=== PATIENT | female | born 1965 | race American Indian/Alaskan Native ===

== ENCOUNTER 2017-09-23 13:41 | Observation (INO) | payer OTHER ==
[2017-09-23 13:47] VITALS: BMI 32.9
--- NOTE | 2017-09-23 16:05 | PDOC ---
Attending Attestation - HPI HPI: 09/23/17 18:07 The patient is a 50 year old female with past medical history of Stroke (CVA w/ residual of the left sided weakness, April 22 2017, blood pressure was 240) , PE (June 2017 ,on Coumadin takes it night time) and HTN presents to the emergency department with nausea and increased weakness to the left side of the body since 1:00 pm today. The patient reports she was feeling fine in the morning until at 1:00 pm at the opthamologist when she started to feel nauseous.The patient can ambulate on her own but today she was having a hard time walking. The patient states she had an headache which is now resolved. The patient reports for the past few days shes been biting her left cheek whenever she eats. The patient reports a baseline symptoms of, left sided weakness but today she feel weakness more than usual, left eye vision problem, cough. The patient reports she doesnt have a neurologist, but reports she has an appointment next week but cant remember of the doctor's name. The patient reports taking all her medication today. Denies chest pain, sob. Denies any change in vision other than the normal symptoms since the stroke. Denies any dysuria, hematuria, frequency or urgency to urinate. Denies any congestion or vertigo sensations. Allergies: NKDA Social history: None reported Surgical history: None reported PCP: None reported - Physicial Exam PE: 09/23/17 18:07 GENERAL: Awake, alert, and fully oriented, in no acute distress HEAD: No signs of trauma EYES: PERRLA, EOMI, sclera anicteric, conjunctiva clear ENT: Auricles normal inspection, hearing grossly normal, nares patent, oropharynx clear without exudates. Moist mucosa NECK: Normal ROM, supple, no lymphadenopathy, JVD, or masses LUNGS: Breath sounds equal, clear to auscultation bilaterally. No wheezes, and no crackles HEART: Regular rate and rhythm, normal S1 and S2, no murmurs, rubs or gallops ABDOMEN: Soft, nontender, normoactive bowel sounds. No guarding, no rebound. No masses EXTREMITIES: Normal range of motion, no edema. No clubbing or cyanosis. No cords, erythema, or tenderness NEUROLOGICAL: (+) Cranial nerve 3 left palsi, Little left facial droop, Sensation intact, Left upper extremity 2/5 and Lower extremity 5/5 Normal speech SKIN: Warm, Dry, normal turgor, no rashes or lesions noted. - Medical Decision Making 09/23/17 18:07 Documentation prepared by Daniela Mcmahan, acting as medical policy specialist for Norma Vences DO. <Daniela Mcmahan - Last Filed: 09/23/17 18:35> - Resident Resident Name: Van Rodson - ED Attending Attestation I have performed the following: I have examined & evaluated the patient, The case was reviewed & discussed with the resident, I agree w/resident's findings & plan, Exceptions are as noted - Medical Decision Making 09/23/17 16:05 I, Dr. Norma Vences DO, attest that this document has been prepared under my direction and personally reviewed by me in its entirety. I further attest, that it accurately reflects all work, treatment, procedures and medical decision -making performed by me. 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 Beard who accepts pt to service <Norma Vences - Last Filed: 09/23/17 19:50>
--- NOTE | 2017-09-23 16:31 | PDOC ---
History of Present Illness - General Chief Complaint: Nausea Stated Complaint: NAUSEA, DIZZINESS Time Seen by Provider: 09/23/17 14:25 - History of Present Illness Initial Comments: 09/23/17 16:07 50 yo F with h/o HTN, hemorrhagic CVA ( residual L sided weakness-04/22/2017 ), PE (06/21) on Coumadin who p/w L sided weakness, nausea w/out vomiting, and frontal BARAJAS. Patient reports acute onset L sided facial tightness, fatigue, and nausea without vomiting while at ophthalmology apt. Endorses diffuse dull, unremitting, BARAJAS following symptoms. Daughter at bedside does not report increased focal motor defects. Daughter reports improvement in symptoms. Denies F/C, CP, SOB, abdominal pain, diarrhea, constipation, urinary complaints , LOC, sensory changes. PMHx: as noted above. Last INR 3 weeks ago unknown. Patient does not f/w neurology. Scheduled ROS: as noted above SHx: Denies tobacco, Etoh, IVDA. Allergies: NKDA Past History - Past Medical History Allergies/Adverse Reactions: Allergies Allergy/AdvReac Type Severity Reaction Status Date / Time No Known Allergies Allergy Verified 09/23/17 13:47 Home Medications: Ambulatory Orders Amlodipine Besylate [Norvasc -] 5 mg PO DAILY 09/23/17 Escitalopram Oxalate [Lexapro -] 10 mg PO DAILY 09/23/17 Famotidine [Pepcid -] 40 mg PO DAILY 09/23/17 Multivitamins [Multivit ([facility] Formulary)] 1 tab PO DAILY 09/23/17 Valsartan [Diovan] 40 mg PO DAILY 09/23/17 Warfarin Na [Coumadin -] 2 mg PO ASDIR 09/23/17 COPD: No Other medical history: stroke april 2017 (left side weakness) - Immunization History Immunization Up to Date: Yes - Suicide/Smoking/Psychosocial Hx Smoking History: Never smoked Review of Systems - Review of Systems Comments:: 09/23/17 17:05 GENERAL/CONSTITUTIONAL: No fever or chills. No weakness. HEAD, EYES, EARS, NOSE AND THROAT: No change in vision. No ear pain or discharge. No sore throat. CARDIOVASCULAR: No chest pain or shortness of breath RESPIRATORY: No cough, wheezing, or hemoptysis. GASTROINTESTINAL: + nausea, without vomiting, diarrhea or constipation. GENITOURINARY: No dysuria, frequency, or change in urination. MUSCULOSKELETAL: No joint or muscle swelling or pain. No neck or back pain. SKIN: No rash NEUROLOGIC: + headache, and no vertigo, loss of consciousness, or change in strength/sensation. ENDOCRINE: No increased thirst. No abnormal weight change HEMATOLOGIC/LYMPHATIC: No anemia, easy bleeding, or history of blood clots. ALLERGIC/IMMUNOLOGIC: No hives or skin allergy. *Physical Exam - Vital Signs Last Vital Signs Temp Pulse Resp BP Pulse Ox 98.7 F 80 20 113/67 99 09/23/17 13:44 09/23/17 13:44 09/23/17 13:44 09/23/17 13:44 09/23/17 13:44 - Physical Exam Comments: 09/23/17 17:07 GENERAL: Awake, alert, and fully oriented, in no acute distress HEAD: + Left sied lower/partial facial droop.No signs of trauma, normocephalic, atraumatic EYES: PERRLA, EOMI, sclera anicteric, conjunctiva clear ENT: Auricles normal inspection, hearing grossly normal, nares patent, oropharynx clear without exudates. Moist mucosa NECK: Normal ROM, supple, no lymphadenopathy, JVD, or masses LUNGS: No distress, speaks full sentences, clear to auscultation bilaterally HEART: Regular rate and rhythm, normal S1 and S2, no murmurs, rubs or gallops, peripheral pulses normal and equal bilaterally. ABDOMEN: Soft, nontender, normoactive bowel sounds. No guarding, no rebound. No masses EXTREMITIES : Normal inspection, Normal range of motion, no edema. No clubbing or cyanosis. NEUROLOGICAL: Cranial nerves II through XII grossly intact. Limited L eye vertical gaze CN III. Normal speech, gait not assessed. Limited LUE ROM. 2/5 elbow flexion and extension. BL UE and LE otherwise 5/5. LUE dysmetria on FTN. ROGELIO and HTS intact. Sensation to pinprick and proprioception intact SKIN: Warm, Dry, normal turgor, no rashes or lesions noted ED Treatment Course - LABORATORY CBC & Chemistry Diagram: 09/23/17 18:30 09/23/17 23:21 Medical Decision Making - Medical Decision Making 09/23/17 17:18 50 yo F with h/o HTN, hemorrhagic CVA ( residual L sided weakness-04/22/2017 ), PE (06/21) on Coumadin who p/w L sided weakness, nausea w/out vomiting, and frontal BARAJAS. VSS, AF, A&Ox3. Left sided partial/lower facial droop, and LUE 2/5 baseline, with no acute change per daughter. NIHSS 6. CTH r/o acute hemmoraghic stroke. Symptoms now improved. Will consider TIA vs. hypoglycemia. Patient arrives from [facility]. CT head pending. Will assess for electrolyte abnml, toxic or metabolic derangements,acid-base disturbances, or underlying infection. Patient with absolute CI to tPa (h/o hemmorhagic CVA). ED Course: Stroke order set intiated. 09/23/17 17:23 CT HEAD: No acute intracranial pathology. Patient admitted to inpatient medicine. *DC/Admit/Observation/Transfer Diagnosis at time of Disposition: Weak - Discharge Dispostion Disposition: HOME Decision to Admit order: Yes - Referrals - Patient Instructions - Post Discharge Activity NIH Stroke Scale - Last Known Well Date/Time & Onset Date Last Known Well: 09/23/17 Time Last Known Well: 01:00 - Initial Evaluation Level of consciousness: Alert Ask patient the month and their age: Answers both correctly Ask patient to open & close eyes; make fist and let go: Obeys both correctly Best gaze (horizontal eye movement): Normal Visual field testing: No visual field loss Facial paresis (Show teeth/raise eyebrows/close eyes tight): Partial paralysis ( total or near paralysis of lower face) Motor Function: Left Arm: No effort against gravity Motor Function: Right Arm: Normal (extends arm 90 (or 45) degrees for 10 seconds without drift Motor Function: Left Leg: Normal (extends leg 30 degrees for 5 seconds without drift) Motor Function: Right Leg: Normal (extends leg 30 degrees for 5 seconds without drift) Limb Ataxia: Present in one limb Sensory(Use pinprick test arms,legs,trunk,face/side to side): Normal Best language (Describe picture, name items, read sentences): No Aphasia Dysarthria (read several words): Normal articulation Extinction and Inattention: No abnormality - Total Score NIH Stroke Scale Score: 6 tPA Exclusion checklist 3-4.5h - Time Elapsed Date last known well: 09/23/17 Time last known well: 01:00 Elaspsed time: 9 Day(s) and 4 Hour(s) and 44 Minutes - Thrombolytic Therapy Candidate Is patient eligible for thrombolytic therapy: No - Exclusion Criteria 3-4.5 hr SBP greater than 185 or DBP greater than 110mmHg despite tx: No Recent IC/spinal surgery,head trauma or stroke<3mos.: No Hx IC hemorrhage, IC neoplasm, AV malformation or aneurysm: Yes Active internal bleeding: No Blding diathesis(low plt ct, inc PTT,INR>1.7 or use of NOAC): No Symptoms suggest subarachnoid hemorrhage: No CT demonstrates multilobar infarct(>1/3 cerebral hemiphere): No Arterial puncture at noncompressible site in previous 7 days: No Blood glucose concentration less than 50mg/dL (2.7mmol/L): No - Relative Exclusion Criteria 3-4.5 hr Life expectancy <1 yr or severe co-morbid illness: No : No Patient/family refused: No Rapid improvement: No Stroke severity too mild: No Recent acute NC (w/in previous 3 months): No Seizure at onset with postictal residual neuro impairments: No Major surgery or serious trauma w/in previous 14 days: No Recent GI or hemorrhage (w/in previous 21 days): No - Add'l Relative Exclusion 3-4.5 hr Age > 80: No Hx of both diabetes AND prior ischemic stroke: No Taking an oral anticoagulant regardless of INR: Yes NIHSS >25: No - Ineligibility reason(s) Reasons No tPA given: See reason(s) noted above
[2017-09-23] MEDS ORDERED: SODIUM CHLORIDE 0.9% 1000 ML INFUS.BAG IV ONE (16:34)
[2017-09-23] MEDS ORDERED: ACETAMINOPHEN 1000 MG/100 ML VIAL (NON FORMULARY) IVPB ONE (16:34)
[2017-09-23] MEDS ORDERED: METOCLOPRAMIDE HCL INJECTION 10 MG/2 ML VIAL IVPUSH ONE (16:34)
[2017-09-23] MEDS ORDERED: SODIUM CHLORIDE 1,000 ML IV SCH (17:15)
[2017-09-23 19:15] LABS: BASO % 0.3 % (0-2.0); HEMATOCRIT 37.7 % (32.4-45.2); HEMOGLOBIN 12.3 GM/dL (10.7-15.3); LYMPH % 38.7 % (8-40); MCH 26.8 pg (25.7-33.7); MCHC 32.6 g/dl (32.0-36.0); MEAN CELL VOLUME 82.1 fl (80-96); MEAN PLT VOLUME 9.1 fl (7.5-11.1); MONO % 7.6 % (3.8-10.2); NEUT % 52.4 % (42.8-82.8); PLATELET COUNT 282 K/MM3 (134-434); RBC 4.59 M/mm3 (3.60-5.2); RDW 14.7 % (11.6-15.6)
[2017-09-23] MEDS ORDERED: ACETAMINOPHEN INJECTION 100 ML IVPB ONE (20:08)
[2017-09-23] MEDS ORDERED: METOCLOPRAMIDE HCL INJECTION 10 MG/2 ML VIAL ONE (20:08)
[2017-09-23 20:57] LABS: INR 2.19 (0.82-1.09); PROTHROMBIN TIME (PATIENT) 24.8 SEC (9.7-13.0)
--- NOTE | 2017-09-23 21:21 | HP ---
Admitting History and Physical - Primary Care Physician PCP: Forrest Beard - Admission History of Present Illness: 50 year old female with past medical history of Stroke (CVA w/ residual of the left sided weakness, April 22 2017, PE (June 2017 ,on Coumadin takes it night time) and HTN presents to the emergency department with nausea and increased weakness to the left side of the body since 1:00 pm today. The patient reports she was feeling fine in the morning until at 1:00 pm at the opthalmologist when she started to feel nauseous.The patient can ambulate on her own but today she was having a hard time walking. The patient states she had an headache which is now resolved. The patient reports for the past few days shes been biting her left cheek whenever she eats. The patient reports a baseline symptoms of, left sided weakness but today she feel weakness more than usual, left eye vision problem, cough.The patient reports taking all her medication today. Denies chest pain, sob. Denies any change in vision other than the normal symptoms since the stroke. - Past Medical History [employer] INS[employer]S INTERN: Yes: CVA Cardiovascular: Yes: HTN Pulmonary: Yes: Pulmonary Embolus - Smoking History Smoking history: Never smoked Home Medications - Allergies Allergies/Adverse Reactions: Allergies Allergy/AdvReac Type Severity Reaction Status Date / Time No Known Allergies Allergy Verified 09/23/17 13:47 - Home Medications Home Medications: Ambulatory Orders Amlodipine Besylate [Norvasc -] 5 mg PO DAILY 09/23/17 Escitalopram Oxalate [Lexapro -] 10 mg PO DAILY 09/23/17 Famotidine [Pepcid -] 40 mg PO DAILY 09/23/17 Multivitamins [Multivit ([facility] Formulary)] 1 tab PO DAILY 09/23/17 Valsartan [Diovan] 40 mg PO DAILY 09/23/17 Warfarin Na [Coumadin -] 2 mg PO ASDIR 09/23/17 Physical Examination Vital Signs: Vital Signs Temperature 98.7 F 09/23/17 13:44 Pulse Rate 80 09/23/17 13:44 Respiratory Rate 20 09/23/17 13:44 Blood Pressure 113/67 09/23/17 13:44 O2 Sat by Pulse Oximetry (%) 99 09/23/17 13:44 Constitutional: Yes: No Distress HENT: Yes: Atraumatic Neck: Yes: Supple Cardiovascular: Yes: Regular Rate and Rhythm Respiratory: Yes: CTA Bilaterally Gastrointestinal: Yes: Normal Bowel Sounds Extremities: Yes: WNL Neurological: Yes: Alert, Oriented Labs: CBC, BMP 09/23/17 18:30 09/23/17 18:30 Imaging - Results Cat Scan: Report Reviewed MRI: Pending Problem List - Problems (1) CVA (cerebral vascular accident) Assessment/Plan: mri done report pending will observe neuro checks h/o cva in past Code(s): I63.9 - CEREBRAL INFARCTION, UNSPECIFIED (2) Weakness Assessment/Plan: residual from previous cva monitor to check if it get worse Code(s): R53.1 - WEAKNESS (3) HTN (hypertension) Assessment/Plan: on meds Code(s): I10 - ESSENTIAL (PRIMARY) HYPERTENSION (4) Pulmonary embolus Assessment/Plan: on coumadin Code(s): I26.99 - OTHER PULMONARY EMBOLISM WITHOUT ACUTE COR PULMONALE Assessment/Plan Laboratory Tests 09/23/17 09/23/17 09/23/17 18:30 18:30 18:30 WBC 6.0 RBC 4.59 Hgb 12.3 Hct 37.7 MCV 82.1 MCH 26.8 MCHC 32.6 RDW 14.7 Plt Count 282 MPV 9.1 Neutrophils % 52.4 Lymphocytes % 38.7 Monocytes % 7.6 Eosinophils % 1.0 Basophils % 0.3 Nucleated RBC % 0 PT with INR INR Sodium Cancelled Potassium Cancelled Chloride Cancelled Carbon Dioxide Cancelled Anion Gap Cancelled BUN Cancelled Creatinine Cancelled Creat Clearance w eGFR Cancelled Random Glucose Cancelled Calcium Cancelled Total Bilirubin Cancelled AST Cancelled ALT Cancelled Alkaline Phosphatase Cancelled Troponin I Cancelled Total Protein Cancelled Albumin Cancelled Triglycerides Cholesterol Total LDL Cholesterol HDL Cholesterol Blood Type Antibody Screen 09/23/17 09/23/17 09/23/17 18:30 18:30 18:30 WBC RBC Hgb Hct MCV MCH MCHC RDW Plt Count MPV Neutrophils % Lymphocytes % Monocytes % Eosinophils % Basophils % Nucleated RBC % PT with INR INR Sodium Potassium Chloride Carbon Dioxide Anion Gap BUN Creatinine Creat Clearance w eGFR Random Glucose Calcium Total Bilirubin AST ALT Alkaline Phosphatase Troponin I Total Protein Albumin Triglycerides Cancelled Cancelled Cholesterol Cancelled Total LDL Cholesterol Cancelled Cancelled HDL Cholesterol Cancelled Blood Type Cancelled Antibody Screen Cancelled 09/23/17 20:00 WBC RBC Hgb Hct MCV MCH MCHC RDW Plt Count MPV Neutrophils % Lymphocytes % Monocytes % Eosinophils % Basophils % Nucleated RBC % PT with INR 24.80 H INR 2.19 H Sodium Potassium Chloride Carbon Dioxide Anion Gap BUN Creatinine Creat Clearance w eGFR Random Glucose Calcium Total Bilirubin AST ALT Alkaline Phosphatase Troponin I Total Protein Albumin Triglycerides Cholesterol Total LDL Cholesterol HDL Cholesterol Blood Type Antibody Screen Active Medications Generic Name Dose Route Start Last Admin Trade Name Freq PRN Reason Stop Dose Admin Sodium Chloride 1,000 mls @ 42 mls/hr 09/23/17 17:15 Normal Saline - IV ASDIR PRICILLA Active Medications Generic Name Dose Route Start Last Admin Trade Name Nareshq PRN Reason Stop Dose Admin Amlodipine Besylate 5 mg 09/24/17 10:00 09/24/17 11:25 Norvasc - PO 5 mg DAILY PRICILLA Administration Escitalopram Oxalate 10 mg 09/24/17 10:00 09/24/17 11:25 Lexapro - PO 10 mg DAILY PRICILLA Administration Sodium Chloride 1,000 mls @ 42 mls/hr 09/23/17 17:15 09/23/17 21:15 Normal Saline - IV 42 mls/hr ASDIR PRICILLA Administration Ranitidine HCl 300 mg 09/24/17 10:00 09/24/17 11:25 Zantac - PO 300 mg DAILY PRICILLA Administration Valsartan 40 mg 09/24/17 10:00 09/24/17 11:25 Diovan - PO 40 mg DAILY PRICILLA Administration Warfarin Sodium 3 mg 09/23/17 22:00 09/23/17 22:55 Coumadin - PO 3 mg 1800 PRICILLA Administration
[2017-09-23] MEDS ORDERED: WARFARIN NA 1 MG TABLET (FP) PO SCH (22:00)
--- NOTE | 2017-09-23 23:08 | CON.NEURO ---
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 Cardio/Vascular: Yes: HTN Pulmonary: Yes: Pulmonary Embolus - Smoking History Smoking history: Never smoked Home Medications - Allergies Allergies/Adverse Reactions: Allergies Allergy/AdvReac Type Severity Reaction Status Date / Time No Known Allergies Allergy Verified 09/23/17 13:47 - Home Medications Home Medications: Ambulatory Orders Amlodipine Besylate [Norvasc -] 5 mg PO DAILY 09/23/17 Escitalopram Oxalate [Lexapro -] 10 mg PO DAILY 09/23/17 Famotidine [Pepcid -] 40 mg PO DAILY 09/23/17 Multivitamins [Tab-A-Vit -] 1 tab PO DAILY 09/23/17 Valsartan [Diovan] 40 mg PO DAILY 09/23/17 Warfarin Na [Coumadin] 2 mg PO ASDIR 09/23/17 Physical Exam-Neuro Vital Signs: Vital Signs Temperature 98.7 F 09/23/17 13:44 Pulse Rate 80 09/23/17 13:44 Respiratory Rate 20 09/23/17 13:44 Blood Pressure 113/67 09/23/17 13:44 O2 Sat by Pulse Oximetry (%) 99 09/23/17 13:44 Labs: CBC, BMP 09/23/17 18:30 09/23/17 18:30 INR, PTT INR 2.19 (0.82-1.09) H 09/23/17 20:00 Assessment/Plan cc Feeling of weakness, stiffness and jaw clenching on left side HPI 50 Year old female history of Stroke in April 2017. Patient had PE on coumadin . She came to Hospital for nausea, She also felt left arm and leg stiffness, and weakness on left side. She also felt that her jaw was clenching on left side. Her ct head was unremarkable for acute findings. Patient feeling more weak on left side. She also had headache but seems to be resolved. Medical History -Stroke, PE on coumadin, NKDA FH,ROS, SH reviewed in chart Home Medications: Amlodipine Besylate [Norvasc -] 5 mg PO DAILY 09/23/17 Escitalopram Oxalate [Lexapro -] 10 mg PO DAILY 09/23/17 Famotidine [Pepcid -] 40 mg PO DAILY 09/23/17 Multivitamins [Tab-A-Vit -] 1 tab PO DAILY 09/23/17 Valsartan [Diovan] 40 mg PO DAILY 09/23/17 Warfarin Na [Coumadin] 2 mg PO ASDIR 09/23/17 Neurological Examination Alert Oriented x 3, speech is normal EOMI pupils reactive, mild left facial paralysis left upper extremity is grade 3, and left lower extremity is grade 4 sensation is intact gait not tested ct head unremarkable Assessment- 50 year old female, history fo HTN,STROKE, PE on coumadin. She has hemorrhagic stroke with residual left hemiparesis. There is worsening of left sided weakness and stiffness and jaw clenching . I suspect she may have focal seizure due to old stroke. Inital ct scan is unremarkable for acute fidnings Plan - 1 . MRI of brain without contrast rule out ischemic stroke 2. EEG 3. carotid ultrasound 4. if mri of brain is normal and consider Keppra 500 mg po bid as she seems to have focal seizure Please feel free to call me if you have any question Fabian Florez MD
[2017-09-23] MEDS ORDERED: WARFARIN NA 1 MG TABLET (FP) ONE (23:43)
[2017-09-24 00:31] LABS: INR 2.17 (0.82-1.09); PROTHROMBIN TIME (PATIENT) 24.5 SEC (9.7-13.0)
[2017-09-24 02:12] LABS: ALBUMIN 3.8 g/dl (3.5-5.0); ALK PHOS 81 U/L (32-92); ANION GAP 7 (8-16); BILIRUBIN,TOTAL 0.6 mg/dl (0.2-1.0); BLOOD UREA NITROGEN 14 mg/dl (7-18); CHLORIDE 104 mmol/L (98-107); CO2 27 mmol/L (22-28); CREATININE < 0.8 mg/dl (0.6-1.3); GLUCOSE,RANDOM 98 mg/dl (74-106); POTASSIUM 3.4 mmol/L (3.5-5.1); SGOT/AST 21 U/L (10-42); SGPT/ALT 22 U/L (10-40); SODIUM 138 mmol/L (136-145)
[2017-09-24 06:46] VITALS: TEMP 98
[2017-09-24] MEDS ORDERED: ESCITALOPRAM OXALATE 10 MG TABLET (FP) PO SCH (10:00)
[2017-09-24] MEDS ORDERED: amLODIPine BESYLATE 5 MG TABLET (FP) PO SCH (10:00)
[2017-09-24] MEDS ORDERED: VALSARTAN 40 MG TABLET (FP) PO SCH (10:00)
[2017-09-24] MEDS ORDERED: RANITIDINE HCL 150 MG TABLET (FP) PO SCH (10:00)
--- NOTE | 2017-09-24 16:16 | DS ---
Physical Examination Vital Signs: Vital Signs Temperature 98.0 F 09/24/17 06:45 Pulse Rate 82 09/24/17 11:31 Respiratory Rate 20 09/24/17 11:31 Blood Pressure 101/59 09/24/17 11:31 O2 Sat by Pulse Oximetry (%) 99 09/24/17 11:31 Constitutional: Yes: No Distress HENT: Yes: Atraumatic Neck: Yes: Supple Cardiovascular: Yes: Regular Rate and Rhythm Respiratory: Yes: CTA Bilaterally Gastrointestinal: Yes: Normal Bowel Sounds Extremities: Yes: Other (weak left side from previous styroke) Neurological: Yes: Alert, Oriented ...Motor Strength: LUE, LLE (weak from previous stroke) Labs: CBC, BMP 09/23/17 18:30 09/23/17 23:21 Discharge Summary Reason For Visit: TRANSIENT CEREBRAL ISCHEMIA Current Active Problems CVA (cerebral vascular accident) (Acute) HTN (hypertension) (Acute) Pulmonary embolus (Acute) Weakness (Acute) - Instructions Referrals: Forrest Beard MD [Staff Physician] - - Home Medications Comprehensive Discharge Medication List: Ambulatory Orders Amlodipine Besylate [Norvasc -] 5 mg PO DAILY 09/23/17 Escitalopram Oxalate [Lexapro -] 10 mg PO DAILY 09/23/17 Famotidine [Pepcid -] 40 mg PO DAILY 09/23/17 Multivitamins [Multivit ([facility] Formulary)] 1 tab PO DAILY 09/23/17 Valsartan [Diovan] 40 mg PO DAILY 09/23/17 Warfarin Na [Coumadin -] 2 mg PO ASDIR 09/23/17 [facility]
--- NOTE | 2017-09-24 16:29 | EKG ---
Test Reason : Blood Pressure : / mmHG Vent. Rate : 061 BPM Atrial Rate : 061 BPM P-R Int : 144 ms QRS Dur : 088 ms QT Int : 452 ms P-R-T Axes : 047 023 033 degrees QTc Int : 455 ms NORMAL SINUS RHYTHM NORMAL ECG NO PREVIOUS ECGS AVAILABLE Confirmed by HUY CASTELAN MD ([id number]) on 09/24/2017 4:29:41 PM Referred By: Confirmed By:HUY CASTELAN MD
--- NOTE | 2017-09-24 16:34 | PN ---
Progress Note (short form) - Note Progress Note: cc Feeling of weakness, stiffness and jaw clenching on left side HPI 50 Year old female history of Stroke in April 2017. Patient had PE on coumadin . She came to Hospital for nausea, She also felt left arm and leg stiffness, and weakness on left side. She also felt that her jaw was clenching on left side. Her ct head was unremarkable for acute findings. she had mri of brain , did not show any acute findings. Neurological Examination Alert Oriented x 3, speech is normal EOMI pupils reactive, mild left facial paralysis left upper extremity is grade 3, and left lower extremity is grade [address] head unremarkable, mri of brain did not show any acute findings. carotid ultrasound is unremarkable. Assessment- 50 year old female, history of Hemorrhagic stroke , PE on coumadin. She has hemorrhagic stroke with residual left hemiparesis. mri and eeg was reviwed, no acute findings. Plan-- There is no seizure activity on eeg, discussed with patient and agree to hold AED for now. - Clenching of jaw could be secondary to spasticity due to hemorrhagic stroke. - advice to see dentist , if she would benefit from botox injection to tempo- mandibular joint - I would see her outpatient. Thanking you so much Fabian Florez MD
[2017-09-24 16:52] VITALS: BP 125/68; PULSE 70
== END 2017-09-24 19:00 | disposition home or self-care (01) ==
LOC: JER 13:41 → JERFT 13:41 → JERBED 19:49 → EDBD 19:49
PROVIDERS: ADMIT Internal Medicine; ATTEND Internal Medicine
PROC: 3E033NZ Introduction of Analgesics, Hypnotics, Sedatives into Peripheral Vein, Percutaneous Approach (ICD-10-PCS; principal; 2017-09-23)
PROC: 3E033GC Introduction of Other Therapeutic Substance into Peripheral Vein, Percutaneous Approach (ICD-10-PCS; 2017-09-23)
PROC: 3E0337Z Introduction of Electrolytic and Water Balance Substance into Peripheral Vein, Percutaneous Approach (ICD-10-PCS; 2017-09-23)
DX: I63.9 Cerebral infarction, unspecified (principal); R53.1 Weakness; I10 Essential (primary) hypertension; I26.99 Other pulmonary embolism without acute cor pulmonale; Z79.01 Long term (current) use of anticoagulants
CPT/HCPCS: 36415; 70450-TC; 70551-TC; 80053; 82550; 83036; 83735; 84484; 85025; 85610; 93005; 93010; 93880-TC; 95816; 96374; 96375; 99285-25; G0378; J0131; J7030